=== PATIENT | male | born 1965 ===

== ENCOUNTER 2016-11-20 12:51 | Emergency (ER) | payer OTHER ==
[2016-11-20] MEDS ORDERED: Fluorescein Sodium TOPICAL* 1 MG TEST OPHTHALMIC ONE (13:07)
[2016-11-20] MEDS ORDERED: Tetracaine 0.5% OPTH.SOL 4 ML* 1 DROP BTL ONE (13:17)
[2016-11-20] MEDS ORDERED: Eye Irrigation Solution 30 ML BOTTLE ONE (13:21)
[2016-11-20] MEDS ORDERED: Tetracaine 0.5% OPTH.SOL 4 ML* 1 DROP BTL BOTH EYES SCH (13:30)
--- NOTE | 2016-11-20 13:51 | UC ---
Eye Complaint HPI - HPI Summary HPI Summary: 51 yo male with fb sensation left eye x 2 weeks onset while riding buggy mild photophobia tearing redness no pus - History of Current Complaint Chief Complaint: UCEye Stated Complaint: FB IN EYE Time Seen by Provider: 11/20/16 13:25 Hx Obtained From: Patient Onset/Duration: Sudden Onset, Lasting Weeks Timing: Constant Severity Initially: Mild Severity Currently: Mild Pain Intensity: 4 Pain Scale Used: 0-10 Numeric Location of Injury: Conjunctiva Character: Foreign Body Sensation Aggravating Factor(s): Light Associated Signs And Symptoms: Positive: Photophobia, Drainage (Clear) Eyes: 1 - fb - Risk Factors Penetrating Injury Risk Factor: Negative Globe Rupture Risk Factors: Negative Acute Glaucoma Risk Factors: Negative Optic Artery Occlusion Risk Factors: Negative - Allergies/Home Medications Allergies/Adverse Reactions: Allergies Allergy/AdvReac Type Severity Reaction Status Date / Time No Known Allergies Allergy Verified 11/20/16 13:07 PMH/Surg Hx/FS Hx/Imm Hx Previously Healthy: Yes - Surgical History Surgical History: None - Family History Known Family History: Positive: Hypertension, Diabetes - Social History Alcohol Use: None Substance Use Type: None Smoking Status (MU): Never Smoked Tobacco - Immunization History Most Recent Tetanus Shot: 2010 Review of Systems Constitutional: Negative Skin: Negative Eyes: Eye Redness, Photophobia ENT: Negative Respiratory: Negative Cardiovascular: Negative Gastrointestinal: Negative Genitourinary: Negative Motor: Negative Neurovascular: Negative Musculoskeletal: Negative Neurological: Negative Psychological: Negative All Other Systems Reviewed And Are Negative: Yes Physical Exam Triage Information Reviewed: Yes Appearance: Well-Appearing, No Pain Distress, Well-Nourished Vital Signs: Initial Vital Signs Temp 98.7 F 11/20/16 13:09 Pulse 69 11/20/16 13:09 Resp 15 11/20/16 13:09 BP 118/78 11/20/16 13:09 Pulse Ox 97 11/20/16 13:09 Vital Signs Reviewed: Yes Eyes: Positive: Conjunctiva Inflamed - Left, Other: - FB noted/flourescein stain confirms ENT: Positive: Hearing grossly normal, Nasal congestion, TMs normal. Negative: Nasal drainage, Trismus, Muffled/hoarse voice Neck: Positive: Supple Respiratory: Positive: Lungs clear, Normal breath sounds, No respiratory distress, No accessory muscle use Cardiovascular: Positive: RRR, No Murmur Musculoskeletal: Positive: ROM Intact, No Edema Neurological: Positive: Alert Psychological Exam: Normal Skin Exam: Normal Procedures - Eye Procedure Alcaine Drops Administered: No - tetracaine drops 2 instilled left eye by me Eye FB Removal: removal w/ cotton swab Eye Complaint Course/Dx - Differential Dx/Diagnosis Provider Diagnoses: foreign body left eye-removed Discharge - Discharge Plan Condition: Stable Disposition: HOME Prescriptions: Polymyx/Trimethoprim OPTH* [Polytrim OPHTH*] 1 - 2 drop LEFT EYE QID #1 btl Patient Education Materials: Eye Foreign Body (ED) Additional Instructions: see your eye doctor tomorrow if your eye is still light sensitive
== END 2016-11-20 13:55 | disposition home or self-care (01) ==
LOC: UCEAST 12:51
DX: T15.92XA Foreign body on external eye, part unspecified, left eye, initial encounter (principal); X58.XXXA Exposure to other specified factors, initial encounter; Y92.9 Unspecified place or not applicable
CPT/HCPCS: 99202; A9270-GY; G0463